=== PATIENT | female | born 1960 | race Caucasian/White ===

== ENCOUNTER 2020-08-10 13:06 | Emergency (ER) | payer MEDICARE ==
[2020-08-10 13:34] LABS: BASOPHIL 0.9 % (0-2); EOSINOPHIL 1.3 % (0-5); LYMPHOCYTE 19.8 % (15-48); MCH 30.9 pg (25.0-31.0); MCHC 33.3 g/dL (32.0-36.0); MCV 92.7 fL (78.0-100.0); MONOCYTE 5.8 % (0-12); MPV 10.4 fL (6.0-9.5); NEUTROPHIL 71.9 % (41-80); NRBC 0; PLT 275 K/uL (150-400); RDW 12.9 % (11.5-14.0); WBC 7.9 K/uL (4.0-10.5)
[2020-08-10 13:55] LABS: BUN/CREAT RATIO (CALC) 15.8 RATIO; CREATININE 0.57 mg/dL (0.51-0.95); POTASSIUM 3.9 mmol/L (3.5-5.1)
== END 2020-08-10 15:22 | disposition home or self-care (01) ==
LOC: FER 13:06
PROVIDERS: Emergency Medicine
DX: R55 Syncope and collapse (principal); R09.89 Other specified symptoms and signs involving the circulatory and respiratory systems; M54.2 Cervicalgia; G89.29 Other chronic pain; F17.210 Nicotine dependence, cigarettes, uncomplicated; Z79.891 Long term (current) use of opiate analgesic; Z98.890 Other specified postprocedural states; Z88.5 Allergy status to narcotic agent
CPT/HCPCS: 36415; 70360; 80048; 84484; 85025; 93005